=== PATIENT | male | born 1940 | race Caucasian/White ===

== ENCOUNTER 2019-07-06 09:18 | Outpatient (CLI) | payer MEDICARE ==
--- NOTE | 2019-07-06 14:24 | NM ---
NUCLEAR MEDICINE [place] BRAIN SCAN: Date: 07/06/19 HISTORY: 78-year-old male with Parkinson's disease. G20. TECHNIQUE: Premedication with 130 mg of SSKI prior to injection of radiopharmaceutical. 1 hour later, 4.3 mCi of I-123 Ioflupane injected. 3 hours after injection, SPECT images of brain obtained in axial plane. FINDINGS: There is uptake in the bilateral caudate nuclei, but no uptake in the right putamen, and almost not u ptake in the left putamen. IMPRESSION: Positive for Parkinson's disease. POS: CET
== END 2019-07-06 09:19 | disposition home or self-care (01) ==
LOC: NM 09:18
PROVIDERS: ATTEND Nurse Practitioner Acute Care
DX: G20 Parkinson's disease (principal); R41.3 Other amnesia
CPT/HCPCS: 78607; A9584

== ENCOUNTER 2020-02-04 10:58 | Observation (INO) | payer MEDICARE, OTHER ==
--- NOTE | 2020-02-04 12:48 | CT ---
CT head noncontrast HISTORY: Altered mental status. FINDINGS: There is no evidence of acute intracranial hemorrhage or infarct. Diffuse cortical atrophy and mild chronic ischemic small vessel disease. 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 There is no mass effect or shift of midline structures. Mucosal opacification of the partially visualized right maxillary sinus. Other paranasal sinuses shelby in well aerated. IMPRESSION : Diffuse cortical atrophy. No acute intracranial abnormalities are demonstrated.
--- NOTE | 2020-02-04 12:52 | RAD ---
AP CHEST: Date: 02/04/2020 HISTORY: Mental status change. FINDINGS: Lungs are clear. No infiltrate or vascular congestion. Heart and mediastinum appear normal. IMPRESSION: No acute process. POS: AH
[2020-02-04 12:58] LABS: #Eosinphils 0.1 thou/uL (0.0-0.7); #Lymphocytes 1.1 thou/uL (1.20-3.40); #Monocytes 0.7 thou/uL (0.11-0.59); #Neutrophils 4.8 thou/uL (1.40-6.50); %Basophils 0.7 % (0.0-1.0); %Eosinophils 0.9 % (0.0-10.0); %Lymphocytes 16.4 % (21.0-51.0); %Monocytes 10.3 % (0.0-10.0); %Neutrophils 71.8 % (42.0-75.0); Hemoglobin 15.4 g/dL (14.0-18.0); Mean Corpuscular HGB CONC 33.4 g/dL (32.0-36.0); Mean Corpuscular Hemoglobin 32.5 pg (27.0-31.0); Mean Corpuscular Volume 97.2 fL (78.0-98.0); Mean Platelet Volume 8.9 fL (7.4-10.4); Platelet Count 162 thou/uL (130-400); RBC Distribution Width 11.9 % (11.5-14.5); Red Blood Cell (RBC) Count 4.75 mill/uL (4.70-6.10); White Blood Cell (WBC) Count 6.7 thou/uL (4.8-10.8)
[2020-02-04 13:27] LABS: ALT (SGPT) 19 U/L (8-55); AST (SGOT) 20 U/L (5-34); Alkaline Phosphatase 118 U/L (40-110); Anion Gap 12 mmol/L (10-20); BUN (Urea Nitrogen) 14 mg/dL (8.4-25.7); Bilirubin, Total 0.6 mg/dL (0.2-1.2); Calc. Creatinine Clearance 0 mL/min (70-130); Carbon Dioxide 26 mmol/L (23-31); Chloride 111 mmol/L (98-107); Estimated GFR-MDRD 81; Glucose 99 mg/dL (83-110); Potassium 3.7 mmol/L (3.5-5.1); Sodium 145 mmol/L (136-145)
[2020-02-04 13:28] LABS: Acetaminophen Less than 6.0 mcg/mL (10.0-30.0); Alcohol Less than 10 mg/dL (Less than 10); Salicylate Less than 8.0 mg/dL (15.0-30.0)
[2020-02-04 13:34] LABS: Bilirubin Negative (Negative); Blood, Urine Trace (Negative); Glucose, Urine (Dipstick) Negative (Negative); Ketone, Urine Negative (Negative); Leukocyte Trace (Negative); Nitrite Negative (Negative); Protein, Urine (Dipstick) Trace mg/dL (Neg-Trace); pH, Urine 8.5 (5.0-9.0)
[2020-02-04 13:42] LABS: CKMB 2.4 ng/mL (0-6.6)
[2020-02-04 13:45] LABS: Clarity Hazy (Clear)
[2020-02-04] MEDS ORDERED: Carbidopa/Levodopa CR 50-200 mg Tablet PO SCH (13:45)
[2020-02-04] MEDS ORDERED: Mirtazapine 15 MG TAB PO SCH (13:45)
[2020-02-04 13:46] LABS: Amphetamine Not Detected (NotDetected); Barbiturates Screen Not Detected (NotDetected); Benzodiazepine Screen Not Detected (NotDetected); Cocaine Metabolite Screen Not Detected (NotDetected); Medtox Control Line Valid? VALID (VALID); Medtox Reader # READER 4; Methadone Not Detected (NotDetected); Methamphetamine Not Detected (NotDetected); Opiate Screen Not Detected (NotDetected); Oxycodone Screen Not Detected (NotDetected); Phencyclidine (PCP) Not Detected (NotDetected); THC/Cannabinoid Screen Not Detected (NotDetected); Tricyclic Screen Not Detected (NotDetected)
[2020-02-04 13:48] LABS: Bacteria/HPF 1+ HPF (None Seen); RBC/HPF None Seen HPF (0-3); Squamous Epithelial 0-3 HPF (0-3)
[2020-02-04] MEDS ORDERED: cloNIDine 0.1 MG TAB ONE (15:58)
[2020-02-04 16:26] LABS: Magnesium 2.1 mg/dL (1.6-2.6); Phosphorus 2.4 mg/dL (2.3-4.7)
[2020-02-04 16:32] LABS: Troponin I 0.022 ng/mL (< 0.028)
[2020-02-04] MEDS ORDERED: cefTRIAXone\\ROCEPHIN 1 GM VIAL ONE (17:13)
[2020-02-04 19:37] LABS: Troponin I 0.032 ng/mL (< 0.028)
[2020-02-04] MEDS ORDERED: Acetaminophen 325 MG TAB PO PRN (19:54)
[2020-02-04] MEDS ORDERED: Dextrose 5 %-0.45 % NaCl 1,000 ML IV SCH (20:00)
[2020-02-04] MEDS ORDERED: Lorazepam 2 MG/ML VIAL SLOW IVP PRN (20:00)
--- NOTE | 2020-02-04 20:57 | HP ---
PRIMARY CARE PHYSICIAN: Dr. Wiggins. CHIEF COMPLAINT: Aggression. HISTORY OF PRESENT ILLNESS: The patient is a 79-year-old male with past medical history significant for Parkinson disease and dementia. He presents to the ER today after he has not taken his medications in a few days and has become increasingly agitated. His brought him in for changes in behavior and increased aggression toward her. He is normally calm and compliant, but has been refusing to take his medications for the past 2 to 3 days and was trying to become increasingly aggressive and acting out and the states that she is scared to be home alone with him at this time. He has no history of acting like this with her. Denies any fever or any recent changes to medication. No fall or other trauma. No recent sick contacts. Sitting in the ER, he has been very calm with no signs of aggression. Today in the ER, they performed lab work, urinalysis, chest x-ray, and brain CT. PAST MEDICAL HISTORY: Parkinson disease, dementia, prostate cancer, glaucoma, bladder cancer. PAST SURGICAL HISTORY: In 2003 for his prostate surgery, cataract surgery, and bladder surgery to remove a tumor. ALLERGIES: TO PENICILLIN. MEDICATIONS: List was obtained from : 1. Carbidopa/levodopa 50 mg-200 mg three times a day. 2. Memantine 10 mg twice a day. 3. Mirtazapine 7.5 mg once a day. 4. Donepezil 10 mg once a day. 5. Seroquel 50 mg at bedtime. 6. Simvastatin 5 mg at bedtime. SOCIAL HISTORY: The patient lives at home. He does not work. Denies any alcohol, drug, or smoking history. FAMILY HISTORY: Unable to obtain at this time. REVIEW OF SYSTEMS: All other review of systems are negative unless noted in the HPI. PHYSICAL EXAMINATION: VITAL SIGNS: Blood pressure 160/106, pulse 72, respiratory rate 18, temperature 98.3, O2 saturation 96% on room air. GENERAL: No pain. The patient appears pain free. Oriented to place. He knows the hospital but not the city and to person. HEENT: Head; atraumatic, normocephalic. Eyes, PERRLA. Extraocular muscles intact. No nystagmus. ENT, mouth exam normal with moist mucous membranes. NECK: Trachea midline. Normal range of motion. RESPIRATORY: Clear to auscultation bilaterally. Breath sounds with no rhonchi , no wheezes, no rales. Normal chest rise. CARDIOVASCULAR: Regular rate and rhythm. No murmurs, no gallops, no rubs. ABDOMEN: Nontender. Normal bowel sounds. No guarding. No rigidity. EXTREMITIES: Normal range of motion. Posterior tibial pulses normal. Pedal pulse normal. NEUROLOGIC: Cranial nerves intact. Alert, oriented to person and place. PSYCHIATRIC: Normal affect. Normal behavior for the patient. LABS AND IMAGING: Chest x-ray showed no acute process. Brain CT showed diffuse cortical atrophy. No acute intracranial abnormalities demonstrated. WBC 6.7, hemoglobin 15.4, hematocrit 46.2, platelet 162. Chemistry; sodium 145, potassium 3.7, chloride 111, BUN 14, creatinine 0.91, GFR is 81, glucose 99, alkaline phosphatase 118. Troponins first was 0.029, next 0.022, third was 0.032. TSH 0.8758. Lactic acid 1.6. Urine showed trace blood and trace leukocyte esterase , white blood cell 7 to 10, bacteria 1+. Toxicology, no drugs indicated. IMPRESSION AND PLAN: The patient appears to be back at his baseline with his Parkinson disease. We will consult Neurology for his altered mental status and for his aggressive behavior he has been exhibiting at home. Hopefully, the patient will take his medications while in the hospital to get him back on a regular schedule. When interviewed, he states that he will take them. Medications have been reconciled and restarted at this time. We will continue to treat the patient's urinary tract infection with IV antibiotics and hopefully this will help his mentation. Urine has been sent for culture. We will monitor the patient on telemetry overnight and follow up with his lab work in the morning. Gastrointestinal prophylaxis in place with Pepcid. Deep venous thrombosis prophylaxis with SCDs. We will discuss code status with his . His surrogate decision maker is his , Alexa Ely. The patient has been discussed with Dr. Cheng. Job ID: [id number] [facility]
[2020-02-04] MEDS ORDERED: Donepezil HCl 10 MG TAB PO SCH (21:00)
[2020-02-04 21:53] VITALS: BMI 22.8
[2020-02-05] MEDS: Carbidopa/Levodopa CR 50-200 mg Tablet PO SCH ×3 (01:04→20:27)
[2020-02-05] MEDS: Labetalol HCl 100 MG/20 ML VIAL SLOW IVP PRN ×2 (03:47→12:13)
[2020-02-05] MEDS: Famotidine 20 MG TAB PO SCH ×2 (04:23→10:46)
[2020-02-05] MEDS: Rosuvastatin 5 MG TAB PO SCH ×2 (04:23→20:27)
[2020-02-05 04:47] LABS: #Monocytes 0.6 thou/uL (0.11-0.59); #Neutrophils 7.1 thou/uL (1.40-6.50); %Basophils 0.5 % (0.0-1.0); %Eosinophils 0.4 % (0.0-10.0); %Monocytes 6.7 % (0.0-10.0); %Neutrophils 81.4 % (42.0-75.0); Hemoglobin 14.4 g/dL (14.0-18.0); Mean Corpuscular Hemoglobin 31.9 pg (27.0-31.0); Mean Corpuscular Volume 96.6 fL (78.0-98.0); Mean Platelet Volume 9.2 fL (7.4-10.4); Platelet Count 159 thou/uL (130-400); RBC Distribution Width 11.9 % (11.5-14.5); Red Blood Cell (RBC) Count 4.52 mill/uL (4.70-6.10); White Blood Cell (WBC) Count 8.7 thou/uL (4.8-10.8)
[2020-02-05 05:10] LABS: Anion Gap 8 mmol/L (10-20); BUN (Urea Nitrogen) 14 mg/dL (8.4-25.7); Calc. Creatinine Clearance 68 mL/min (70-130); Calcium 8.6 mg/dL (7.8-10.44); Carbon Dioxide 28 mmol/L (23-31); Chloride 108 mmol/L (98-107); Estimated GFR-MDRD 86; Glucose 98 mg/dL (83-110); Potassium 3.3 mmol/L (3.5-5.1); Sodium 141 mmol/L (136-145)
[2020-02-05] MEDS ORDERED: Mirtazapine 15 MG Soltab PO SCH ×2 (09:00→21:00)
[2020-02-05] MEDS ORDERED: Prevnar 13-Val Conj/PF 0.5 ML SYRINGE IM ONE (09:00)
[2020-02-05] MEDS ORDERED: D5 1/2 NS w/20 mEq KCL 1,000 ML IV SCH ×2 (10:15→14:28)
[2020-02-05] MEDS: Cyanocobalamin (Vitamin B-12) 1,000 MCG TAB PO SCH (10:46)
[2020-02-05] MEDS: Saccharomyces boulardii 250 MG CAP PO SCH (10:46)
--- NOTE | 2020-02-05 11:48 | PDOC.HOSPP ---
- Subjective Encounter Date: 02/05/20 Encounter Time: 16:00 Subjective: Mr. Ely is a 79 y/o M with a PMH of prostate cancer, bladder cancer, and Parkinsons who presented to the ED for worsening behavioral disturbances. Patient was not a reliable historian and provided collateral information. stated taht for the past month the patient has had worsening delusions and "strange dreams." She stated that on Tuesday the patient believed his was trying to kill him and was being aggressive. He refused to take his medication for several days. states that the patient is looking better and is now acting more like himself. His tone has returned to normal. - Objective Vital Signs & Weight: Vital Signs (12 hours) Temp Pulse Resp BP BP Pulse Ox 02/05/20 07:30 98.1 F 88 16 160/91 H 96 02/05/20 05:13 98.1 F 87 14 179/79 H 97 02/05/20 03:47 71 194/88 H 02/05/20 01:20 194/88 H Weight Weight 150 lb 1.6 oz I&O: 02/04/20 02/05/20 02/06/20 06:59 06:59 06:59 Intake Total 200 Balance 200 Result Diagrams: 02/05/20 04:26 02/05/20 04:26 Radiology Reviewed by me: Yes (CXR - Neg) EKG Reviewed by me: Yes (Tele SR) Hospitalist ROS - Review of Systems ROS unobtainable: due to mental status Genitourinary: reports: frequency - Medication Medications: Active Medications Generic Name Dose Route Start Last Admin Trade Name Waqar PRN Reason Stop Dose Admin Carbidopa/Levodopa 1 tab 02/04/20 21:00 02/05/20 10:46 Sinemet Cr 50/200 PO Not Given TID WILMA Cyanocobalamin 1,000 mcg 02/05/20 09:00 02/05/20 10:46 Vitamin B-12 PO Not Given DAILY WILMA Donepezil HCl 10 mg 02/04/20 21:00 02/05/20 04:23 Aricept PO Not Given HS WILMA Famotidine 20 mg 02/04/20 21:00 02/05/20 10:46 Pepcid PO Not Given BID WILMA Labetalol HCl 10 mg 02/05/20 02:04 02/05/20 03:47 Normodyne SLOW IVP 10 mg Q4H PRN Administration Systolic BP > 180 Memantine 10 mg 02/04/20 21:00 02/05/20 10:46 Namenda PO Not Given BID WILMA Mirtazapine 7.5 mg 02/05/20 09:00 02/05/20 10:46 Remeron Soltab PO Not Given DAILY WILMA Quetiapine Fumarate 25 mg 02/04/20 21:00 02/05/20 04:23 Seroquel PO Not Given HS WILMA Rosuvastatin Calcium 5 mg 02/04/20 21:00 02/05/20 04:23 Crestor PO Not Given HS WILMA Saccharomyces Boulardii 250 mg 02/05/20 09:00 02/05/20 10:46 Florastor PO Not Given DAILY WILMA - Exam General Appearance: awake alert Neck: supple, symmetric, no JVD, no carotid bruit Heart: RRR, no murmur, no gallops, normal peripheral pulses Respiratory: CTAB, no wheezes, no rales, no ronchi Gastrointestinal: non-tender, non-distended, normal bowel sounds, no bruit Extremities: no cyanosis, no edema Neurological: no new deficit Hosp A/P - Plan plan discussed w/ family, PT/OT, DVT proph w/SCDs Toxic Metabolic encephalopathy due to Advanced Parkinsons with med noncompliance Hypokalemia Advanced Parkinson disease HTN HLD Dementia with Behavioral symptoms Depression PLAN: DC Ceftriaxone - cultures negative Replace Potassium Start: Carbidopa/Levidopa 50/200 TID Start: Clonidine Cont: Rosuvastatin and Fish oil Continue: Mirtazipine continue SCD Home meds verified with spouse - updated in [employer] Cont Seroquel HS May benefit from Nuplazid Change Remeron to HS Spouse unable to take him home today - Will call her son to come and help her ( Son lives 3 hr away) Will dc in AM.
[2020-02-05] MEDS ORDERED: Mirtazapine 15 MG TAB PO PRN ×2 (11:53→12:56)
--- NOTE | 2020-02-05 13:55 | CON ---
NEUROLOGY CONSULTATION DATE OF CONSULTATION: 02/05/2020 REASON FOR CONSULTATION: Altered mental status. HISTORY OF PRESENT ILLNESS: Mr. Ervin Ely is a 79-year-old male with medical history significant for Parkinson disease and baseline dementia, presented to the emergency room yesterday because of agitation and refusing to take the medications. According to the , he has been having behavior changes and nightmares and delusions since January 18, but since the last 2 to 3 days, he has become increasingly aggressive and refused to take his medications. This is the first time that has happened to him and to the extent that he is scared to be alone at home with him. Currently, the patient is calm and in control, and denies focal weakness, focal paresthesias, nausea, vomiting, headache, chest pain or abdominal pain. In the emergency room, the head CT was done, which was negative for acute intracranial process. Chest x-ray was unremarkable. REVIEW OF SYSTEMS: All 10 systems were reviewed and were negative. PAST MEDICAL HISTORY: Parkinson disease, followed by Dr. Garces; dementia; prostate cancer; glaucoma; bladder cancer. PAST SURGICAL HISTORY: Prostate surgery and cataract surgery. ALLERGIES: PENICILLIN. MEDICATIONS: 1. Carbidopa/levodopa 50 mg/200 mg three times daily. 2. Memantine 10 mg twice daily. 3. Mirtazapine 7.5 mg once daily. 4.Seroquel 50 mg at bedtime. 5. Simvastatin 5 mg at bedtime. SOCIAL HISTORY: , lives at home with his . Denies smoking, alcohol or illegal drug use. FAMILY HISTORY: No family history of stroke or dementia. REVIEW OF SYSTEMS: All 10 systems were reviewed and were negative except for pertinent positives and negatives mentioned in the HPI. - Objective Vital Signs & Weight: Vital Signs (12 hours) Temp Pulse Resp BP BP Pulse Ox 02/05/20 07:30 98.1 F 88 16 160/91 H 96 02/05/20 05:13 98.1 F 87 14 179/79 H 97 02/05/20 03:47 71 194/88 H 02/05/20 01:20 194/88 H Weight Weight 150 lb 1.6 oz I&O: 02/04/20 02/05/20 02/06/20 06:59 06:59 06:59 Intake Total 200 Balance 200 Active Medications Generic Name Dose Route Start Last Admin Trade Name Freq PRN Reason Stop Dose Admin Carbidopa/Levodopa 1 tab 02/04/20 21:00 02/05/20 10:46 Sinemet Cr 50/200 PO Not Given TID [facility] Cyanocobalamin 1,000 mcg 02/05/20 09:00 02/05/20 10:46 Vitamin B-12 PO Not Given DAILY WILMA Donepezil HCl 10 mg 02/04/20 21:00 02/05/20 04:23 Aricept PO Not Given HS [facility] Famotidine 20 mg 02/04/20 21:00 02/05/20 10:46 Pepcid PO Not Given BID WILMA Labetalol HCl 10 mg 02/05/20 02:04 02/05/20 03:47 Normodyne SLOW IVP 10 mg Q4H PRN Administration Systolic BP > 180 Memantine 10 mg 02/04/20 21:00 02/05/20 10:46 Namenda PO Not Given BID [facility] Mirtazapine 7.5 mg 02/05/20 09:00 02/05/20 10:46 Remeron Soltab PO Not Given DAILY [facility] Quetiapine Fumarate 25 mg 02/04/20 21:00 02/05/20 04:23 Seroquel PO Not Given HS [facility] Rosuvastatin Calcium 5 mg 02/04/20 21:00 02/05/20 04:23 Crestor PO Not Given HS [facility] Saccharomyces Boulardii 250 mg 02/05/20 09:00 02/05/20 10:46 Florastor PO Not Given DAILY WILMA - Exam General Appearance: awake alert Heart: RRR, no murmur, no gallops, normal peripheral pulses Respiratory: CTAB, no wheezes, no rales, no ronchi Gastrointestinal: non-tender, non-distended, normal bowel sounds, no bruit PHYSICAL EXAMINATION: VITAL SIGNS: Blood pressure 170/90, pulse 80, and respiratory rate 18. GENERAL: Alert, awake male, in no acute distress. HEENT: Normocephalic and atraumatic. NECK: Supple. CHEST: Clear. ABDOMEN: Soft. CVS: Regular rate and rhythm. EXTREMITIES: No clubbing, cyanosis or edema. NEUROLOGICAL: Mental status, the patient is alert and oriented to person and place. He does not know the month of the year. Per , that is his baseline. Motor ; muscle tone is somewhat increased. Bulk is normal. Moving all 4 extremities equally and symmetrically. Cerebellar, finger-nose testing intact. Cranial nerves 2 through 12 intact. Sensory, withdraws to pinprick bilaterally. Gait deferred due to the patient's safety reasons. DATA REVIEWED: I reviewed the CT scan, which shows diffuse cortical atrophy, but no acute intracranial process. Chest x-ray seems unremarkable. Labs were essentially except urine showed trace blood and trace leukocyte esterase with white blood cells 7 to 10 and bacteria positive. ASSESSMENT AND PLAN: Mr. Ervin Ely is a 79-year-old male, consulted for aggressive behavior and altered mental status. He does have history of dementia and Parkinson disease, most likely worsening of baseline dementia in the setting of urinary tract infection since the patient is back to the baseline. No need to change Parkinson med since his Parkinson disease seems to be well controlled. Follow up with Neurology as outpatient. We will recommend EEG to rule out underlying seizure activity. Head CT reviewed, which was negative for acute intracranial process. Neuro checks every 4 hours. Continue medical management per primary team. Plan discussed in detail with the patient and the . We will continue to follow. Thank you for the consult. Job ID: [id number] [facility]
[2020-02-05] MEDS ORDERED: cloNIDine 0.1 MG TAB PO PRN (14:27)
[2020-02-05] MEDS ORDERED: Polyethylene Glycol OPTH DROP 15 ML BOT EA EYE SCH (15:00)
[2020-02-05] MEDS: Potassium Chloride 10 MEQ TAB PO SCH (16:10)
[2020-02-05] MEDS ORDERED: CARBIDOPA LEVODOPA PO SCH (18:00)
[2020-02-05] MEDS ORDERED: [UNRECOGNIZED DRUG - OTHER] PO SCH (18:00)
--- NOTE | 2020-02-05 20:36 | EEG ---
DATE OF SERVICE: 02/05/2020 This EEG was performed using 24-channel [employer] video digital EEG machine with 24-disk electrodes, this was a routine EEG recording. BACKGROUND: The posterior background rhythm was not observed. The low amplitude EEG with excessive beta activity intermixed with the background. HYPERVENTILATION: Not performed. PHOTIC STIMULATION: Not performed. SLEEP: No stage change was observed. EEG DIAGNOSES: 1. Low amplitude electroencephalography with excessive beta activity intermixed with the background. 2. Absence of posterior background rhythm. CLINICAL INTERPRETATION: This EEG is consistent with [id number] generalized nonspecific cerebral dysfunction. No ictal or interictal epileptiform abnormalities seen during the recording. Job ID: [id number]
[2020-02-05] MEDS ORDERED: Non-Formulary Item 1 EACH (Bimatoprost [Lumigan 0.01% Ophth Soln] 1 DROP) EA EYE SCH (21:00)
[2020-02-05] MEDS ORDERED: Donepezil HCl 10 MG TAB PO SCH (21:00)
[2020-02-05] MEDS ORDERED: Latanoprost 0.005% Ophth Soln 2.5 ml Bottle EA EYE SCH (21:00)
[2020-02-05] MEDS ORDERED: Carbidopa/Levodopa CR 50-200 mg Tablet PO SCH (21:00)
[2020-02-05] MEDS ORDERED: cefTRIAXone\\ROCEPHIN 1 GM in Sodium Chloride 0.9% 100 ML IVPB SCH (21:00)
[2020-02-05] MEDS ORDERED: Brinzolamide 1% Ophth SUSP 10 ml Bottle R EYE SCH (21:00)
[2020-02-06 04:29] LABS: #Eosinphils 0.2 thou/uL (0.0-0.7); #Lymphocytes 1.8 thou/uL (1.20-3.40); #Monocytes 0.6 thou/uL (0.11-0.59); #Neutrophils 4.7 thou/uL (1.40-6.50); %Basophils 0.5 % (0.0-1.0); %Eosinophils 2.6 % (0.0-10.0); %Lymphocytes 24.5 % (21.0-51.0); %Monocytes 8.5 % (0.0-10.0); Mean Corpuscular HGB CONC 32.8 g/dL (32.0-36.0); Mean Corpuscular Hemoglobin 31.8 pg (27.0-31.0); Mean Corpuscular Volume 96.9 fL (78.0-98.0); Mean Platelet Volume 9.4 fL (7.4-10.4); Platelet Count 145 thou/uL (130-400); Red Blood Cell (RBC) Count 4.39 mill/uL (4.70-6.10); White Blood Cell (WBC) Count 7.3 thou/uL (4.8-10.8)
[2020-02-06 04:49] LABS: Anion Gap 9 mmol/L (10-20); BUN (Urea Nitrogen) 15 mg/dL (8.4-25.7); Calc. Creatinine Clearance 66 mL/min (70-130); Calcium 8.4 mg/dL (7.8-10.44); Carbon Dioxide 27 mmol/L (23-31); Chloride 109 mmol/L (98-107); Estimated GFR-MDRD 83; Glucose 86 mg/dL (83-110); Potassium 3.3 mmol/L (3.5-5.1); Sodium 142 mmol/L (136-145)
[2020-02-06] MEDS ORDERED: Fish Oil 1,000 MG CAP PO SCH (09:00)
[2020-02-06] MEDS ORDERED: Non-Formulary Item 1 EACH (Cholecalciferol (Vitamin D3) [Vitamin D3] 2,000 UNIT) PO SCH (09:00)
[2020-02-06] MEDS ORDERED: Non-Formulary Item 1 EACH (Bromfenac Sodium [Prolensa] 1 DROP) L EYE SCH (09:00)
[2020-02-06] MEDS ORDERED: Ascorbic Acid 500 mg Chewable Tablet PO SCH (09:00)
[2020-02-06] MEDS ORDERED: Multivit, Therapeutic 1 TAB PO SCH (09:00)
[2020-02-06] MEDS ORDERED: Bromfenac Sodium [Prolensa] L EYE SCH (09:00)
[2020-02-06] MEDS ORDERED: Non-Formulary Item 1 EACH (Multivitamin [Multivitamins] 1 CAP) PO SCH (09:00)
[2020-02-06] MEDS ORDERED: Cholecalciferol 1,000 UNITS (25 MCG) TAB PO SCH (09:00)
[2020-02-06] MEDS: Cyanocobalamin (Vitamin B-12) 1,000 MCG TAB PO SCH (09:15)
[2020-02-06] MEDS: Potassium Chloride 10 MEQ TAB PO SCH (09:15)
[2020-02-06] MEDS: Carbidopa/Levodopa CR 50-200 mg Tablet PO SCH (09:15)
[2020-02-06] MEDS: Saccharomyces boulardii 250 MG CAP PO SCH (09:15)
[2020-02-06 11:48] VITALS: BP 124/73; TEMP 98.6
[2020-02-06] MEDS ORDERED: Potassium Chloride 10 MEQ TAB PO SCH (12:00)
[2020-02-06 14:30] LABS: SARS-CoV-2 MS2 Positive; SARS-CoV-2 N Gene Negative; SARS-CoV-2 S Gene Negative; SARS-CoV-2 by NAA Not Detected (NotDetected); SARS-CoV-2 orf1ab Negative
--- NOTE | 2020-02-06 14:33 | PDOC.HOSPP ---
- Subjective Encounter Date: 02/06/20 Subjective: NEUROLOGY PROGRESS NOTE Patient calm and oriented to person and place only. - Objective Vital Signs & Weight: Vital Signs (12 hours) Temp Pulse Resp BP Pulse Ox 02/06/20 11:48 98.6 F 90 16 124/73 96 02/06/20 08:30 98.2 F 85 16 144/85 H 96 02/06/20 04:20 98.5 F 78 16 164/80 H 98 Weight Weight 150 lb 1.663 oz I&O: 02/05/20 02/06/20 02/07/20 06:59 06:59 06:59 Intake Total 200 1590 Output Total 200 Balance 200 1390 Result Diagrams: 02/06/20 04:10 02/06/20 04:10 Radiology Reviewed by me: Yes EKG Reviewed by me: Yes Hospitalist ROS - Review of Systems Constitutional: denies: fever, chills, sweats, weakness, malaise, other Eyes: denies: pain, vision change, conjunctivae inflammation, eyelid inflammation, redness, other ENT: denies: ear pain, ear discharge, nose pain, nose discharge, nose congestion , mouth pain, mouth swelling, throat pain, throat swelling, other Cardiovascular: denies: chest pain, palpitations, orthopnea, paroxysmal noc. dyspnea, edema, light headedness, other Gastrointestinal: denies: nausea, vomiting, abdominal pain, diarrhea, constipation, melena, hematochezia, other Genitourinary: denies: dysuria, frequency, incontinence, hematuria, retention, other Musculoskeletal: denies: neck pain, shoulder pain, arm pain, back pain, hand pain, leg pain, foot pain, other Skin: denies: rash, lesions, pardeep, bruising, other Neurological: denies: weakness, numbness, incoordination, change in speech, confusion, seizures, other - Exam General Appearance: awake alert Eye: PERRL ENT: normocephalic atraumatic Neck: supple Heart: RRR Respiratory: CTAB Gastrointestinal: soft Extremities: no cyanosis Skin: normal turgor Neurological: no weakness, no new deficit Musculoskeletal: normal tone, normal strength, no muscle wasting Psychiatric: normal affect, normal behavior, oriented to person, oriented to place Hosp A/P (1) AMS (altered mental status) Code(s): R41.82 - ALTERED MENTAL STATUS, UNSPECIFIED Status: Acute (2) Parkinson disease Code(s): G20 - PARKINSON'S DISEASE Status: Acute - Plan PT/OT 79 year old presented with acute confusion with agitation and refusal to take medications. He was treated for UTI.Most likely worsening of baseline dementia due to UTI. Currently calm and following commands.History of aggression at home. EEG reviewed and was negative for seizure activity. Head CT negative for acute bleed or infarct. PD seems to be controlled on current dose of sinemet per exam. Continue home dose of sinemet. Neurochecks every 4 hours. Continue home medications Follow up as outpatient with Dr. Felix. Plan discussed in detail with the .
--- NOTE | 2020-02-07 06:12 | DIS ---
DATE OF ADMISSION: 02/04/2020 DATE OF DISCHARGE: 02/06/2020 DISCHARGE DISPOSITION: Home. FOLLOWUP: 1. Follow up with primary care physician, Dr. Davidson Noel, in 1 week. 2. Follow up with Neurology, Dr. Felix as outpatient. DISCHARGE MEDICATION: 1. Vitamin B12 1000 mcg daily. 2. Potassium chloride 10 mEq daily for seven days. 3. The patient was advised to change mirtazapine to 7.5 mg at bedtime rather than 7.5 mg daily. 4. All other home medications were left unchanged. 5. The patient will benefit from Nuplazid instead of quetiapine. BRIEF HOSPITAL COURSE: The patient is a 79-year-old male with advanced Parkinson disease with behavioral symptoms, was brought into the hospital with altered mentation along with aggressive behavior. He is normally calm and compliant; however, over the past 2 to 3 days, he has been intermittently refusing to take his medications. The was scared of him and brought him to the emergency room. He was found to have urinary tract infection and was started on empiric antibiotics. However, his urine culture remained negative. Antibiotics were discontinued for this reason. He also was found to have electrolyte abnormalities, which were gradually replaced. He was evaluated by Neurology, Dr. Maldonado, who recommended to continue current Parkinson medications. His EEG showed [id number] generalized nonspecific cerebral dysfunction. He will benefit from Nuplazid instead of Seroquel for behavioral symptoms and hallucination. The patient was advised to follow up with Neurology. FINAL DIAGNOSES: 1. Toxic metabolic encephalopathy due to worsening Parkinson disease with behavior symptoms and hallucinations. 2. Hypokalemia, replaced. 3. Advanced Parkinson disease. 4. Hypertension. 5. Hyperlipidemia. 6. Dementia with behavioral symptoms. 7. Depression. 8. Penicillin allergy. 9. Chronic kidney disease stage 2. I discussed the plan of care with the spouse, who understands the above plan of care. DIAGNOSTIC TESTS: Chest x-ray was negative. Job ID: [id number]
--- NOTE | 2020-02-28 16:51 | EKG ---
Test Reason : Blood Pressure : / mmHG Vent. Rate : 083 BPM Atrial Rate : 083 BPM P-R Int : 150 ms QRS Dur : 088 ms QT Int : 394 ms P-R-T Axes : 070 003 058 degrees QTc Int : 462 ms Normal sinus rhythm Normal ECG Confirmed by ANGIE SY ([id number]), editor newspaper RASHARD GRAVES ([id number]) on 02/28/2020 4:50:27 PM Referred By: Confirmed By:ANGIE Parish
== END 2020-02-06 14:00 | disposition home or self-care (01) ==
LOC: ERS 10:58 → ERHOLD 16:34 → 2NO 21:40
PROVIDERS: ADMIT Internal Medicine; ATTEND Internal Medicine
DX: G92 Toxic encephalopathy (principal); G20 Parkinson's disease; F02.81 Dementia in other diseases classified elsewhere, unspecified severity, with behavioral disturbance; I12.9 Hypertensive chronic kidney disease with stage 1 through stage 4 chronic kidney disease, or unspecified chronic kidney disease; N18.2 Chronic kidney disease, stage 2 (mild); E78.5 Hyperlipidemia, unspecified; E87.6 Hypokalemia; F32.9 Major depressive disorder, single episode, unspecified; Z79.899 Other long term (current) drug therapy; Z88.0 Allergy status to penicillin; Z11.59 Encounter for screening for other viral diseases; Z20.828 Contact with and (suspected) exposure to other viral communicable diseases
CPT/HCPCS: 51701; 70450; 71045; 80048 ×2; 80306; 80307; 82553; 82607; 82746; 83605; 83735; 84100; 84484 ×3; 85025 ×2; 87086; 93005; 95816; 95819; 96365; 96366; 96367; 96375; 96376; 97116; 97139 ×3; 97535; 99285; G0378 ×4; U0003; 36415; 80053; 81003; 81015; 84443; 87635; J0696; J3480

== ENCOUNTER 2020-07-15 19:45 | Emergency (ER) | payer MEDICARE | END 2020-07-15 20:59 | LOC: ERS 19:45 | DX: Z00.129 Encounter for routine child health examination without abnormal findings (principal) | CPT/HCPCS: 99284 ==

== ENCOUNTER 2021-01-08 17:31 | Emergency (ER) | payer MEDICARE ==
[~2021-01-08 17:31] MED LIST: Iopamidol-370 76% 500 ML 1 ML ONE
[2021-01-08 17:47] LABS: #Eosinphils 0.1 thou/uL (0.0-0.7); #Lymphocytes 1.7 thou/uL (1.20-3.40); #Monocytes 0.6 thou/uL (0.11-0.59); #Neutrophils 5.3 thou/uL (1.40-6.50); %Basophils 0.6 % (0.0-1.0); %Lymphocytes 21.8 % (21.0-51.0); %Monocytes 7.6 % (0.0-10.0); %Neutrophils 69.1 % (42.0-75.0); Hemoglobin 12.9 g/dL (14.0-18.0); Mean Corpuscular HGB CONC 34.7 g/dL (32.0-36.0); Mean Corpuscular Hemoglobin 33.2 pg (27.0-31.0); Mean Corpuscular Volume 95.6 fL (78.0-98.0); Mean Platelet Volume 8.4 fL (7.4-10.4); Platelet Count 151 thou/uL (130-400); Red Blood Cell (RBC) Count 3.89 mill/uL (4.70-6.10); White Blood Cell (WBC) Count 7.6 thou/uL (4.8-10.8)
[2021-01-08 18:00] LABS: PTT 26.2 sec (22.9-36.1); Prothrombin Time 12.8 sec (12.0-14.7)
[2021-01-08 18:06] LABS: ALT (SGPT) Less than 7 U/L (8-55); AST (SGOT) 29 U/L (5-34); Albumin 3.6 g/dL (3.4-4.8); Alkaline Phosphatase 114 U/L (40-110); Anion Gap 14 mmol/L (10-20); BUN (Urea Nitrogen) 18 mg/dL (8.4-25.7); Bilirubin, Total 0.3 mg/dL (0.2-1.2); Calc. Creatinine Clearance 0 mL/min (70-130); Calcium 8.8 mg/dL (7.8-10.44); Carbon Dioxide 22 mmol/L (23-31); Chloride 105 mmol/L (98-107); Globulin 2.8 g/dL (2.4-3.5); Glucose 113 mg/dL (83-110); Potassium 3.8 mmol/L (3.5-5.1); Protein, Total 6.4 g/dL (5.8-8.1); Sodium 137 mmol/L (136-145)
[2021-01-08 19:28] LABS: Bacteria/HPF None Seen HPF (None Seen); Bilirubin Negative (Negative); Blood, Urine 1+ (Negative); Clarity Clear (Clear); Glucose, Urine (Dipstick) Normal (Negative); Ketone, Urine Negative (Negative); Leukocyte Negative Leu/uL (Negative); Nitrite Negative (Negative); Protein, Urine (Dipstick) 10 mg/dL (Neg-Trace); Squamous Epithelial 0-3 HPF (0-3); Urobilinogen Normal mg/dL (Less than 2); WBC/HPF 0-3 HPF (0-3)
[2021-01-08 19:30] LABS: Specific Gravity, Urine Greater than 1.060 (1.002-1.036)
== END 2021-01-08 20:20 ==
LOC: ERS 17:31
DX: R41.82 Altered mental status, unspecified (principal); R47.81 Slurred speech; R53.1 Weakness; R29.704 NIHSS score 4; F03.90 Unspecified dementia, unspecified severity, without behavioral disturbance, psychotic disturbance, mood disturbance, and anxiety; Z85.46 Personal history of malignant neoplasm of prostate; Z85.51 Personal history of malignant neoplasm of bladder
CPT/HCPCS: 36416; 51701; 70450; 70496; 70498; 71045; 80053; 81003; 81015; 84484; 85025; 85610; 85730; 93005

== ENCOUNTER 2022-01-15 17:23 | Inpatient (IN) | payer MEDICARE, OTHER ==
[~2022-01-15 17:23] MED LIST changes: +ISOVUE-370 76%-LOCM 1 ML ONE; -Iopamidol-370 76% 500 ML 1 ML ONE
[2022-01-15 18:38] LABS: #Lymphocytes 0.9 thou/uL (1.20-3.40); #Monocytes 0.4 thou/uL (0.11-0.59); #Neutrophils 4.7 thou/uL (1.40-6.50); %Basophils 0.2 % (0.0-1.0); %Eosinophils 0.4 % (0.0-10.0); %Lymphocytes 14.6 % (21.0-51.0); %Monocytes 6.5 % (0.0-10.0); %Neutrophils 78.3 % (42.0-75.0); Hemoglobin 12.5 g/dL (14.0-18.0); Mean Corpuscular Hemoglobin 32.9 pg (27.0-31.0); Mean Platelet Volume 8.8 fL (7.4-10.4); Platelet Count 125 thou/uL (130-400); RBC Distribution Width 11.8 % (11.5-14.5); Red Blood Cell (RBC) Count 3.79 mill/uL (4.70-6.10)
[2022-01-15 18:58] LABS: ALT (SGPT) 11 U/L (8-55); AST (SGOT) 19 U/L (5-34); Albumin 2.8 g/dL (3.4-4.8); Alkaline Phosphatase 76 U/L (40-110); Anion Gap 13 mmol/L (10-20); BUN (Urea Nitrogen) 51 mg/dL (8.4-25.7); Bilirubin, Total 0.5 mg/dL (0.2-1.2); Calc. Creatinine Clearance 0 mL/min (70-130); Calcium 7.8 mg/dL (7.8-10.44); Carbon Dioxide 27 mmol/L (23-31); Chloride 106 mmol/L (98-107); Estimated GFR 42; Globulin 2.4 g/dL (2.4-3.5); Glucose 122 mg/dL (83-110); Potassium 3.5 mmol/L (3.5-5.1); Protein, Total 5.2 g/dL (5.8-8.1); Sodium 142 mmol/L (136-145)
[2022-01-15] MEDS ORDERED: Aspirin 300 MG Suppository ONE (19:14)
[2022-01-16] MEDS ORDERED: hydrOXYzine 25 MG TAB PO PRN (05:22)
[2022-01-16 05:48] LABS: Cardiac Risk 3.5 (Less than 4.5)
[2022-01-16] MEDS: Latanoprost 0.005% Ophth Soln 2.5 ml Bottle EA EYE SCH (10:16)
[2022-01-16] MEDS: Brinzolamide 1% Ophth SUSP 10 ml Bottle R EYE SCH ×2 (10:17→20:12)
[2022-01-16] MEDS: Cyanocobalamin (Vitamin B-12) 1,000 MCG TAB PO SCH (10:19)
[2022-01-16] MEDS: Aspirin 81 mg Enteric Coated Tablet PO SCH ×2 (10:20→10:45)
[2022-01-16] MEDS: Potassium Chloride 10 MEQ TAB PO SCH ×2 (10:20→10:52)
[2022-01-16] MEDS: Carbidopa/Levodopa CR 50-200 mg Tablet PO SCH ×2 (10:20→10:53)
[2022-01-16] MEDS: busPIRone HCl 10 MG TAB PO SCH (10:21)
[2022-01-16] MEDS ORDERED: Aspirin Chewable 81 MG TAB PO SCH (10:45)
[2022-01-16] MEDS: Sodium Chloride 0.9% 1,000 ML IV SCH (14:25)
[2022-01-16] MEDS: Carbidopa/Levodopa 25-100 mg Tablet PO SCH ×3 (14:36→22:05)
[2022-01-16 14:38] LABS: Anion Gap 13 mmol/L (10-20); BUN (Urea Nitrogen) 30 mg/dL (8.4-25.7); Calc. Creatinine Clearance 50 mL/min (70-130); Calcium 8.3 mg/dL (7.8-10.44); Carbon Dioxide 24 mmol/L (23-31); Chloride 111 mmol/L (98-107); Estimated GFR 89; Glucose 87 mg/dL (83-110); Potassium 3.9 mmol/L (3.5-5.1); Sodium 144 mmol/L (136-145)
[2022-01-16] MEDS: (Pimavanserin Tartrate [Nuplazid] 34 MG Capsule) PO SCH (20:08)
[2022-01-16] MEDS: BROMFENAC SODIUM EA EYE SCH (20:08)
[2022-01-16] MEDS: Donepezil HCl 10 MG TAB PO SCH ×2 (20:11→22:05)
[2022-01-16] MEDS: Mirtazapine 15 MG TAB PO SCH ×2 (20:11→22:05)
[2022-01-16] MEDS: Rosuvastatin 5 MG TAB PO SCH ×2 (20:12→22:05)
[2022-01-16] MEDS: Labetalol HCl 100 MG/20 ML VIAL SLOW IVP PRN (20:46)
[2022-01-16] MEDS ORDERED: Atorvastatin Calcium 40 MG TAB PO SCH (21:00)
[2022-01-17] MEDS: Sodium Chloride 0.9% 1,000 ML IV SCH ×2 (03:02→16:54)
[2022-01-17 06:04] LABS: Anion Gap 12 mmol/L (10-20); BUN (Urea Nitrogen) 23 mg/dL (8.4-25.7); Calc. Creatinine Clearance 61 mL/min (70-130); Carbon Dioxide 24 mmol/L (23-31); Cardiac Risk 4.4 (Less than 4.5); Chloride 112 mmol/L (98-107); Cholesterol 119 mg/dl (< 200 Desired); Estimated GFR 95; Glucose 79 mg/dL (83-110); HDL Cholesterol 27 mg/dL (>60 Neg Risk); LDL Cholesterol, Calculated 76 mg/dL; Potassium 3.9 mmol/L (3.5-5.1); Sodium 144 mmol/L (136-145); Triglycerides 81 mg/dL (Less than 150)
[2022-01-17] MEDS: Brinzolamide 1% Ophth SUSP 10 ml Bottle R EYE SCH ×2 (07:50→20:43)
[2022-01-17] MEDS: BROMFENAC SODIUM EA EYE SCH (07:50)
[2022-01-17] MEDS: Latanoprost 0.005% Ophth Soln 2.5 ml Bottle EA EYE SCH (07:50)
[2022-01-17] MEDS: Potassium Chloride 10 MEQ TAB PO SCH (08:54)
[2022-01-17] MEDS: Carbidopa/Levodopa 25-100 mg Tablet PO SCH ×3 (09:22→20:09)
[2022-01-17] MEDS: Cyanocobalamin (Vitamin B-12) 1,000 MCG TAB PO SCH (09:22)
[2022-01-17] MEDS: busPIRone HCl 10 MG TAB PO SCH (09:22)
[2022-01-17] MEDS: Aspirin Chewable 81 MG TAB PO SCH (09:22)
[2022-01-17] MEDS: (Pimavanserin Tartrate [Nuplazid] 34 MG Capsule) PO SCH (09:23)
[2022-01-17] MEDS ORDERED: Amino Acids 4.25 %/Dextrose 5% 2,000 ML BAG IV SCH (17:00)
[2022-01-17] MEDS: Amino Acids 4.25 %/Dextrose 5% 1,000 ML IV SCH (17:51)
[2022-01-17] MEDS: Mirtazapine 15 MG TAB PO SCH (20:09)
[2022-01-17] MEDS: Donepezil HCl 10 MG TAB PO SCH (20:09)
[2022-01-17] MEDS: Rosuvastatin 5 MG TAB PO SCH (20:09)
[2022-01-17] MEDS: Labetalol HCl 100 MG/20 ML VIAL SLOW IVP PRN (20:42)
[2022-01-18] MEDS: Sodium Chloride 0.9% 1,000 ML IV SCH ×2 (05:24→20:15)
[2022-01-18] MEDS: Brinzolamide 1% Ophth SUSP 10 ml Bottle R EYE SCH ×2 (13:39→20:15)
[2022-01-18] MEDS: BROMFENAC SODIUM EA EYE SCH (13:40)
[2022-01-18] MEDS: Latanoprost 0.005% Ophth Soln 2.5 ml Bottle EA EYE SCH (13:41)
[2022-01-18] MEDS: Carbidopa/Levodopa 25-100 mg Tablet PO SCH ×3 (13:41→20:56)
[2022-01-18] MEDS: Cyanocobalamin (Vitamin B-12) 1,000 MCG TAB PO SCH (13:42)
[2022-01-18] MEDS: (Pimavanserin Tartrate [Nuplazid] 34 MG Capsule) PO SCH (13:42)
[2022-01-18] MEDS: Labetalol HCl 100 MG/20 ML VIAL SLOW IVP PRN (13:42)
[2022-01-18] MEDS: Aspirin Chewable 81 MG TAB PO SCH (13:43)
[2022-01-18] MEDS: busPIRone HCl 10 MG TAB PO SCH (13:44)
[2022-01-18] MEDS: Potassium Chloride 10 MEQ TAB PO SCH (13:44)
[2022-01-18] MEDS: Amino Acids 4.25 %/Dextrose 5% 1,000 ML IV SCH (15:34)
[2022-01-18] MEDS: Mirtazapine 15 MG TAB PO SCH (20:56)
[2022-01-18] MEDS: Rosuvastatin 5 MG TAB PO SCH (20:56)
[2022-01-18] MEDS: Donepezil HCl 10 MG TAB PO SCH (20:56)
[2022-01-19] MEDS: Labetalol HCl 100 MG/20 ML VIAL SLOW IVP PRN ×2 (05:21→16:51)
[2022-01-19] MEDS: Sodium Chloride 0.9% 1,000 ML IV SCH (09:28)
[2022-01-19] MEDS: Aspirin Chewable 81 MG TAB PO SCH (09:29)
[2022-01-19] MEDS: Potassium Chloride 10 MEQ TAB PO SCH (09:29)
[2022-01-19] MEDS: Carbidopa/Levodopa 25-100 mg Tablet PO SCH ×3 (09:30→21:35)
[2022-01-19] MEDS: busPIRone HCl 10 MG TAB PO SCH (09:30)
[2022-01-19] MEDS: Brinzolamide 1% Ophth SUSP 10 ml Bottle R EYE SCH ×2 (09:30→21:35)
[2022-01-19] MEDS: Cyanocobalamin (Vitamin B-12) 1,000 MCG TAB PO SCH (09:31)
[2022-01-19] MEDS: BROMFENAC SODIUM EA EYE SCH (09:31)
[2022-01-19] MEDS: Latanoprost 0.005% Ophth Soln 2.5 ml Bottle EA EYE SCH (09:31)
[2022-01-19] MEDS: (Pimavanserin Tartrate [Nuplazid] 34 MG Capsule) PO SCH (09:32)
[2022-01-19] MEDS: Donepezil HCl 10 MG TAB PO SCH (16:49)
[2022-01-19] MEDS: Amino Acids 4.25 %/Dextrose 5% 1,000 ML IV SCH (18:06)
[2022-01-19] MEDS ORDERED: hydrALAZINE 20 MG/ML VIAL SLOW IVP PRN (21:25)
[2022-01-19] MEDS: Rosuvastatin 5 MG TAB PO SCH (21:35)
[2022-01-19] MEDS: Mirtazapine 15 MG TAB PO SCH (21:35)
[2022-01-20] MEDS: Labetalol HCl 100 MG/20 ML VIAL SLOW IVP PRN (00:32)
[2022-01-20] MEDS: busPIRone HCl 10 MG TAB PO SCH (09:13)
[2022-01-20] MEDS: Carbidopa/Levodopa 25-100 mg Tablet PO SCH ×3 (09:13→21:27)
[2022-01-20] MEDS: Potassium Chloride 10 MEQ TAB PO SCH (09:16)
[2022-01-20] MEDS: Aspirin Chewable 81 MG TAB PO SCH (09:16)
[2022-01-20] MEDS: Cyanocobalamin (Vitamin B-12) 1,000 MCG TAB PO SCH (09:17)
[2022-01-20] MEDS: (Pimavanserin Tartrate [Nuplazid] 34 MG Capsule) PO SCH (09:18)
[2022-01-20] MEDS: BROMFENAC SODIUM EA EYE SCH (09:18)
[2022-01-20] MEDS: Latanoprost 0.005% Ophth Soln 2.5 ml Bottle EA EYE SCH (09:18)
[2022-01-20] MEDS: Brinzolamide 1% Ophth SUSP 10 ml Bottle R EYE SCH ×2 (09:19→21:28)
[2022-01-20 13:17] VITALS: BMI 17.0
[2022-01-20] MEDS: Mirtazapine 15 MG TAB PO SCH (21:27)
[2022-01-20] MEDS: Donepezil HCl 10 MG TAB PO SCH (21:27)
[2022-01-20] MEDS: Rosuvastatin 5 MG TAB PO SCH (21:27)
[2022-01-21] MEDS: Potassium Chloride 10 MEQ TAB PO SCH (09:03)
[2022-01-21] MEDS: (Pimavanserin Tartrate [Nuplazid] 34 MG Capsule) PO SCH (09:04)
[2022-01-21] MEDS: busPIRone HCl 10 MG TAB PO SCH (09:09)
[2022-01-21] MEDS: Carbidopa/Levodopa 25-100 mg Tablet PO SCH ×2 (09:09→17:44)
[2022-01-21] MEDS: Latanoprost 0.005% Ophth Soln 2.5 ml Bottle EA EYE SCH (09:10)
[2022-01-21] MEDS: Brinzolamide 1% Ophth SUSP 10 ml Bottle R EYE SCH (09:10)
[2022-01-21] MEDS: BROMFENAC SODIUM EA EYE SCH (09:12)
[2022-01-21] MEDS: Cyanocobalamin (Vitamin B-12) 1,000 MCG TAB PO SCH (09:13)
[2022-01-21] MEDS: Aspirin Chewable 81 MG TAB PO SCH (09:35)
[2022-01-21 15:54] VITALS: BP 149/85; TEMP 98.8
== END 2022-01-21 16:55 | disposition hospice, home (50) | DRG 177 ==
LOC: ERS 17:23 → NEURO 20:00 → OBSVTOIN 01-18 16:03
PROVIDERS: ADMIT Internal Medicine; ATTEND Internal Medicine
PROC: 8E0ZXY6 Isolation (ICD-10-PCS; principal; 2022-01-18)
DX: U07.1 COVID-19 (principal); Z66 Do not resuscitate; Z51.5 Encounter for palliative care; G93.41 Metabolic encephalopathy; R64 Cachexia; Z68.1 Body mass index [BMI] 19.9 or less, adult; N17.9 Acute kidney failure, unspecified; G20 Parkinson's disease; H40.9 Unspecified glaucoma; I10 Essential (primary) hypertension; F02.80 Dementia in other diseases classified elsewhere, unspecified severity, without behavioral disturbance, psychotic disturbance, mood disturbance, and anxiety; E86.0 Dehydration; R13.12 Dysphagia, oropharyngeal phase; Z78.1 Physical restraint status; Z28.82 Immunization not carried out because of caregiver refusal; Z74.01 Bed confinement status; Z88.0 Allergy status to penicillin; Z79.899 Other long term (current) drug therapy; Z90.79 Acquired absence of other genital organ(s); Z85.46 Personal history of malignant neoplasm of prostate; Z85.51 Personal history of malignant neoplasm of bladder; Z82.49 Family history of ischemic heart disease and other diseases of the circulatory system
CPT/HCPCS: 36415; 36416; 51701; 70450; 70496; 70498; 70551; 71045; 80048; 80053; 80061; 84484; 85025; 93005; 96360; 96361; 96374; G0378; J0360; J7050; Q9966